=== PATIENT | male | born 1985 | race Caucasian/White ===

== ENCOUNTER → 2016-08-28 | Outpatient (CLI) | payer OTHER ==
[2016-08-28 13:57] VITALS: BP 140/89
== END ==
LOC: MHUC 13:32
PROVIDERS: ATTEND Physician Assistant
DX: J00 Acute nasopharyngitis [common cold] (principal)
CPT/HCPCS: 99213

== ENCOUNTER → 2016-12-26 | Outpatient (CLI) | payer OTHER ==
[~2016-12-26] MED LIST: AMOX1TAB12 PO; BENZ-22 PO; METH4TAB27 PO
[2016-12-26 16:44] VITALS: BP 131/82
--- NOTE | 2016-12-26 16:45 | Urgent Care T Sheet Gen (E) ---
Intake General Temperature (Fahrenheit): 99.6 Pulse: 119 Blood Pressure Systolic: 131 Blood Pressure Diastolic: 82 Respirations: 18 SPO2: 96 Description of Symptoms patient presents with illness x 3 days. states he feels like a truck hit him. Notes TARANGO, sinus congestion/pressure, malaise, no fever. Cough is worse at night and keeps him up. States the cough is mostly dry. Been using Netti pot, no meds. History of Present Illness Home Meds Active Scripts Benzonatate (Tessalon Perles)100 Mg [id number] Mg PO TID PRN COUGH #20 CAP Prov:DAGOBERTO APARICIO 12/26/16 Methylprednisolone (Medrol Dosepack)21 Tab/Pkt Tablet6 Tab PO DAILY Inflammation #1 PKT Ref 0 6 tabs on day 1 then decrease by 1 tab daily until packet is gone Prov:DAGOBERTO APARICIO 12/26/16 Amoxicillin/Clavulanate Potassium (Augmentin 875mg/125mg)1 Each Tablet1 Tab PO BID #20 TAB Ref 0 Prov:DAGOBERTO APARICIO 12/26/16 Respiratory Constitutional Symptoms: No Fever, Malaise EENTM: Nose Congestion Throat pain Respiratory: Cough Cardiovascular: No symptoms reported Gastrointestinal/Abdominal: No symptoms reported Neurological: Headache All Other Systems Reviewed Remaining Systems: All other systems reviewed with negative findings Physical Exam Physical Exam General Appearance: WD/WN No apparent distress Eyes, Ears, Nose, Throat Ex: Pharynx normal TM abnormal (R) (red, bulging) Other (red, swollen nasal turbinates with purulent drainage) Neck Exam: SuppleNo Lymphadenopathy Respiratory Exam: Lungs clear Normal breath sounds Cardiovascular Exam: Regular rate, rhythm Departure Urgent Care Impression Impression: Primary Impression: Otitis media Qualified Code: H66.001 - Acute suppurative otitis media without spontaneous rupture of ear drum, right ear Additional Impression: Sinusitis Qualified Code: J01.00 - Acute maxillary sinusitis, unspecified Departure Disposition: HOME OR SELF-CARE Condition: Stable Additional Instructions: I have started the patient on Augmentin for treatment of infection Medrol dose pack for inflammation and swelling, no NSAIDs while on steroid Tessalon pearls for cough Rest. Fluids Return as needed Patient understands Dc instructions. All questions were answered. Scripts Benzonatate (Tessalon Perles)100 Mg [id number] Mg PO TID PRN COUGH #20 CAP Prov:DAGOBERTO APARICIO 12/26/16 Methylprednisolone (Medrol Dosepack)21 Tab/Pkt Tablet6 Tab PO DAILY Inflammation #1 PKT Ref 0 6 tabs on day 1 then decrease by 1 tab daily until packet is gone Prov:DAGOBERTO APARICIO 12/26/16 Amoxicillin/Clavulanate Potassium (Augmentin 875mg/125mg)1 Each Tablet1 Tab PO BID #20 TAB Ref 0 Prov:DAGOBERTO APARICIO 12/26/16 End of report . DAGOBERTO APARICIO December 26, 2016 16:02
== END ==
LOC: MHUC 15:36
PROVIDERS: ATTEND Physician Assistant
DX: H66.001 Acute suppurative otitis media without spontaneous rupture of ear drum, right ear (principal); J01.00 Acute maxillary sinusitis, unspecified
CPT/HCPCS: 99213